=== PATIENT | male | born 1970 | race Caucasian/White ===

== ENCOUNTER 2018-12-07 20:15 | Emergency (ER) | payer OTHER ==
--- NOTE | 2018-12-07 20:58 | RAD ---
THREE VIEWS LEFT HAND: 12/07/18 HISTORY: Post fall today. Left wrist and hand pain. FINDINGS: There is no evidence of fracture, dislocation, or other osseous abnormality involving the left hand. IMPRESSION: No acute osseous abnormality. POS: [facility]
--- NOTE | 2018-12-07 20:59 | RAD ---
THREE VIEWS LEFT WRIST: 12/07/18 HISTORY: Fall today. Left wrist and hand pain. FINDINGS: There is no evidence of a fracture, dislocation, or other osseous abnormality involving the left wris t. IMPRESSION: No acute osseous abnormality. If there is strong clinical concern for fracture of the navicular bone , followup views of the wrist can be performed in 4 to 7 days after conservative management. POS: [facility]
== END 2018-12-07 20:52 | disposition home or self-care (01) ==
LOC: NAV ERS 20:15
DX: S63.502A Unspecified sprain of left wrist, initial encounter (principal); I10 Essential (primary) hypertension; W19.XXXA Unspecified fall, initial encounter

== ENCOUNTER 2020-11-19 17:02 | Outpatient (CLI) | payer OTHER ==
--- NOTE | 2020-11-19 18:25 | RAD ---
THREE VIEWS OF THE LEFT SHOULDER: 11/19/20 COMPARISON: None. HISTORY: Injury left shoulder with pain. FINDINGS: Three views of the left shoulder shows no evidence of acute fracture or dislocation. No glenohumeral degenerative changes are seen. Mild acromioclavicular degenerative changes are present. There may be a minimally displaced fracture of the left posterolateral 8th rib. IMPRESSION: 1. No evidence of acute shoulder abnormality. 2. Possible left 8th rib fracture. POS: [facility]
== END 2020-11-19 17:03 | disposition home or self-care (01) ==
LOC: NAV RAD 17:02
PROVIDERS: ATTEND Family Medicine
DX: S46.002A Unspecified injury of muscle(s) and tendon(s) of the rotator cuff of left shoulder, initial encounter (principal)

== ENCOUNTER 2022-03-27 11:21 | Emergency (ER) | payer OTHER, SELFPAY ==
[2022-03-27 12:07] LABS: #Eosinphils 0.3 thou/uL (0.0-0.7); #Lymphocytes 1.8 thou/uL (1.20-3.40); #Monocytes 0.5 thou/uL (0.11-0.59); #Neutrophils 4.5 thou/uL (1.40-6.50); %Basophils 0.7 % (0.0-1.0); %Eosinophils 3.9 % (0.0-10.0); %Lymphocytes 25.5 % (21.0-51.0); %Monocytes 6.6 % (0.0-10.0); %Neutrophils 63.3 % (42.0-75.0); Mean Corpuscular HGB CONC 29.2 g/dL (32.0-36.0); Mean Corpuscular Hemoglobin 20.3 pg (27.0-31.0); Mean Corpuscular Volume 69.5 fL (78.0-98.0); Mean Platelet Volume 7.9 fL (7.4-10.4); Platelet Count 278 thou/uL (130-400); RBC Distribution Width 14.4 % (11.5-14.5); White Blood Cell (WBC) Count 7.2 thou/uL (4.8-10.8)
[2022-03-27 12:12] LABS: ALT (SGPT) 74 U/L (8-55); AST (SGOT) 37 U/L (5-34); Albumin 4.8 g/dL (3.5-5.0); Alkaline Phosphatase 63 U/L (40-110); Anion Gap 18 mmol/L (10-20); BUN (Urea Nitrogen) 12 mg/dL (8.9-20.6); Bilirubin, Total 0.9 mg/dL (0.2-1.2); Calc. Creatinine Clearance 0 mL/min (70-130); Calcium 9.2 mg/dL (7.8-10.44); Carbon Dioxide 23 mmol/L (22-29); Chloride 102 mmol/L (98-107); Estimated GFR 87; Globulin 2.3 g/dL (2.4-3.5); Glucose 112 mg/dL (70-105); Potassium 4.1 mmol/L (3.5-5.1); Protein, Total 7.1 g/dL (6.0-8.3); Sodium 139 mmol/L (136-145)
[2022-03-27] MEDS ORDERED: Lorazepam 2 MG/ML VIAL ONE (12:29)
[2022-03-27] MEDS ORDERED: Sodium Chloride 0.9% 1,000 ML ONE (12:29)
[2022-03-27] MEDS ORDERED: Loratadine 10 MG TAB PO SCH (12:45)
[2022-03-27 13:21] LABS: Bilirubin Negative (Negative); Blood, Urine Negative (Negative); Clarity Clear (Clear); Glucose, Urine (Dipstick) Negative (Negative); Ketone, Urine Negative (Negative); Leukocyte Negative (Negative); Nitrite Negative (Negative); Protein, Urine (Dipstick) Negative (Neg-Trace); Urobilinogen 0.2 mg/dL (Less than 2); pH, Urine 6.5 (5.0-9.0)
== END 2022-03-27 13:56 | disposition home or self-care (01) ==
LOC: NAV ERS 11:21
DX: H81.10 Benign paroxysmal vertigo, unspecified ear (principal); E78.5 Hyperlipidemia, unspecified; I10 Essential (primary) hypertension; Z79.899 Other long term (current) drug therapy
CPT/HCPCS: 80053; 81003; 84443; 85025; 93005; 96361; 96374; J2060; J7050

== ENCOUNTER 2022-08-07 08:21 | Emergency (ER) | payer OTHER, SELFPAY ==
[2022-08-07] MEDS ORDERED: Boostrix 0.5 ML (Tdap) VIAL (>/=7 yrs of age) ONE (08:56)
== END 2022-08-07 09:15 | disposition home or self-care (01) ==
LOC: NAV ERS 08:21
DX: S20.91XA Abrasion of unspecified parts of thorax, initial encounter (principal); H81.10 Benign paroxysmal vertigo, unspecified ear; E78.00 Pure hypercholesterolemia, unspecified; I10 Essential (primary) hypertension; X58.XXXA Exposure to other specified factors, initial encounter; Z79.899 Other long term (current) drug therapy
CPT/HCPCS: 90471; 90715; 93005